=== PATIENT | male | born 1975 | race Caucasian/White ===

== ENCOUNTER 2024-07-03 01:23 | Day surgery (SDC) | payer OTHER, SELFPAY ==
[2024-06-24 11:03] VITALS: BMI 26.0
[2024-07-03 11:13] VITALS: BP 117/78; PULSE 78; RESP 14; TEMP 36; O2SAT 99
[2024-07-03 11:14] VITALS: BMI 25.8
--- NOTE | 2024-07-03 11:21 | P.PNAN_ITS ---
Anes - Initial Pre Proc Eval Procedure: Operation Date: 07/03/24 12:30 Proposed Procedures p Colonoscopy - Von Don MD Date/Time: 07/03/24 11:21 Surgeon: Von Don MD Pre Op Diagnosis: fecal abnormalities Patient Data Age: 49 Gender: M Height: 1.75 m Weight: 79.4 kg Last Vital Signs Temp 96.8 F L 07/03/24 11:13 Pulse 78 07/03/24 11:13 Resp 14 07/03/24 11:13 BP 117/78 07/03/24 11:13 Pulse Ox 99 07/03/24 11:13 O2 Del Method Room Air 07/03/24 11:13 Allergies Allergy/AdvReac Type Severity Reaction Status Date / Time No Known Allergies Allergy Mild Verified 07/03/24 11:12 Home Medications Medication Instructions Recorded Confirmed Type acyclovir 400 mg tablet 400 mg PO TID PRN Cold Sores 06/24/24 07/03/24 History Patient hx anesthesia problems: none Family hx anesthesia problems: none Results Review: All pre-operative results and documents have been reviewed as part of the pre- operative evaluation. [facility] Surgical History Surgical History (Updated 08/17/22 @ 07:11 by Kayden Coon MD) History of right inguinal hernia repair Social History Social History Smoking status: Never smoker Drinks per week: 1 Living arrangements: with family Spiritual care concerns: No Anes - Eval Final PreProcedure Day of Procedure 07/03/24 11:21 Patient weight: normal Heart: regular rate and rhythm Lungs: clear to auscultation Airway: Mallampati scale class II Neurological: alert and oriented Last oral intake: >/= 8 hours ASA classification: I Emergent: no Anesthetic plan: proceed Anesthesia type and monitoring: general GIVS and standard monitoring Results Review: All pre-operative results and documents have been reviewed as part of the pre- operative evaluation. Informed Consent: The patient's anesthetic plan and its attendant risks and benefits were discussed with the patient/family/POA. Questions were solicited and answers provided to the satisfaction of the patient/family/POA.
[2024-07-03] MEDS: LACTATED RINGERS 1,000 ML 150 ML IV CONT (11:27)
--- NOTE | 2024-07-03 12:00 | P.HP_ITS ---
H&P: HPI History of Present Illness Date/Time: 07/03/24 12:00 Chief Complaint: Heme-positive stools Narrative: This is the patient's first colonoscopy. he was recently found to have heme- positive stools. There are no GI symptoms and there is no family history of colorectal cancer. Review of Systems Review of Systems: All systems reviewed & are unremarkable except as noted in HPI and below PMFSH Surgical History Surgical History (Updated 08/17/22 @ 07:11 by Kayden Coon MD) History of right inguinal hernia repair Social History Social History Smoking status: Never smoker Drinks per week: 1 Living arrangements: with family Spiritual care concerns: No Meds Home Medications and Allergies Home Medications Medication Instructions Recorded Confirmed Type acyclovir 400 mg tablet 400 mg PO TID PRN Cold Sores 06/24/24 07/03/24 History Allergies Allergy/AdvReac Type Severity Reaction Status Date / Time No Known Allergies Allergy Mild Verified 07/03/24 11:12 Vital Signs Vital Signs - 24 hr 07/03/24 11:13 Temperature 96.8 F L Pulse Rate 78 Respiratory Rate 14 Blood Pressure 117/78 Pulse Oximetry 99 Oxygen Delivery Room Air Exam Const: General: cooperative and healthy appearing Resp: Effort & Inspection: normal respiratory effort and able to speak in complete sentences Auscultation: clear to auscultation bilaterally Cardio: Rate: regular rate Rhythm: regular rhythm GI: Inspection: normal to inspection GI Palp: No No hepatosplenomegaly present Auscultation: normal bowel sounds Rectal Exam: deferred Skin: General skin exam: normal color Psych: Appearance: grossly normal Mental Status: mental status grossly normal Assessment and Plan Assessment and plan (1) Positive FIT (fecal immunochemical test): Code(s): R19.5 - Other fecal abnormalities Status: Acute Assessment and Plan: The patient is deemed a good candidate for the procedure. Consent signed. Will proceed.
[2024-07-03 12:16] VITALS: BP 140/77; PULSE 96; RESP 25; O2SAT 100
[2024-07-03 12:26] VITALS: BP 101/73; PULSE 96; RESP 25; O2SAT 100
[2024-07-03 12:36] VITALS: BP 115/74; PULSE 86; RESP 18; O2SAT 100
== END 2024-07-03 12:46 | disposition home or self-care (01) ==
PROVIDERS: PCP Family Medicine Adolescent Medicine; Visit Provider Internal Medicine Gastroenterology
PROC: 0DJD8ZZ Inspection of Lower Intestinal Tract, Via Natural or Artificial Opening Endoscopic (ICD-10-PCS; CPT 45378; principal; 2024-07-03 12:30)
DX: R19.5 Other fecal abnormalities (principal); K64.1 Second degree hemorrhoids
CPT/HCPCS: 45378; J2704; J7120